=== PATIENT | female | born 1945 | race Caucasian/White ===

== ENCOUNTER 2021-04-25 06:26 | Day surgery (SDC) | payer MEDICARE ==
[2021-04-21 13:38] LABS: BASOPHILS % (AUTO) 0.7 % (0-1); EOSINOPHILS # (AUTO) 0.2 X10'3 (0-0.9); EOSINOPHILS % (AUTO) 2.7 % (0-6); LYMPHOCYTES # (AUTO) 1.5 X10'3 (1.1-4.8); LYMPHOCYTES % (AUTO) 24.2 % (21-51); MEAN CORPUSCULAR HEMOGLOBIN 29.9 PG (27.0-31.0); MEAN CORPUSCULAR HGB CONC 33.9 g/dL (33.0-36.5); MEAN CORPUSCULAR VOLUME 88.1 FL (78-98); MEAN PLATELET VOLUME 7.7 FL (7.4-10.4); MONOCYTES # (AUTO) 0.5 X10'3 (0-0.9); MONOCYTES % (AUTO) 8.2 % (2-12); NEUTROPHILS % (AUTO) 64.2 % (42-75); PRE OP HEMATOCRIT 38.1 % (35.0-45.0); PRE OP HEMOGLOBIN 12.9 g/dL (12.0-16.0); PRE OP PLATELET COUNT 298 X10'3 (140-440); RED BLOOD COUNT 4.32 X10'6 (4.20-5.60); RED CELL DISTRIBUTION WIDTH 14.3 % (11.5-14.5)
[2021-04-21 13:55] LABS: ALBUMIN 3.8 G/DL (3.4-5.0); ALBUMIN/GLOBULIN RATIO 1.1 (1.1-1.5); ALKALINE PHOSPHATASE 100 IU/L (46-116); BLOOD UREA NITROGEN 18 MG/DL (7-18); BUN/CREATININE RATIO 20.2 (6.6-38.0); CHLORIDE 106 MMOL/L (99-107); CREATININE 0.89 MG/DL (0.40-0.90); PRE OP ALT 24 U/L (30-65); PRE OP ANION GAP 8 (8-16); PRE OP AST 16 U/L (10-37); PRE OP BILIRUB, TOTAL 0.6 MG/DL (0.0-1.0); PRE OP GLUCOSE 116 MG/DL (70-104); PRE OP SODIUM 145 MMOL/L (135-145); TOTAL CARBON DIOXIDE 31.2 MMOL/L (24-32); TOTAL PROTEIN 7.4 G/DL (6.4-8.2); eGFR 61 ML/MIN
[2021-04-21 13:57] LABS: PRE OP POTASSIUM 3.3 MMOL/L (3.4-5.1)
[~2021-04-25] VITALS: Ht 172.7 cm; Wt 110.3 kg
[~2021-04-25 06:26] MED LIST: AMLO2.5T2 PO; BETA1TAB20 PO; HYDR12.522 PO; LOSA100T13 PO; albuterol 2.5 MG/3 ML nebule NEB PRN; ceFAZolin 2gm in dextrose, iso 50 ML IV ONE; famotidine 20mg tablet PO ONE; ringers solution, lacted 1,000 ML IV SCH
[2021-04-25] MEDS ORDERED: BUPIVAcaine/PF 2.5 mg/ml (0.25%) 30ml vial ONE (06:31)
[2021-04-25 06:50] VITALS: BP 149/69
[2021-04-25] MEDS ORDERED: ondansetron/PF 4mg/2ml inj IV PRN (07:35)
[2021-04-25] MEDS ORDERED: meperidine/PF 25mg/ml syringe IV PRN ×3 (07:35)
[2021-04-25] MEDS ORDERED: ringers solution, lacted 1,000 ML IV SCH (07:35)
[2021-04-25] MEDS ORDERED: proCHLORperazine 10 MG/2 ml inj IV PRN (07:35)
[2021-04-25] MEDS ORDERED: morphine 2 MG/ML inj. syringe IV PRN (07:35)
[2021-04-25] MEDS ORDERED: morphine 4 MG/ML inj SYRINge IV PRN (07:35)
[2021-04-25] MEDS ORDERED: fentaNYL/PF 50MCG/1 ML 2ML syringe ONE (09:12)
[2021-04-25] MEDS ORDERED: midazolam 1 mg/ML 2ml injection ONE (09:12)
[2021-04-25] MEDS ORDERED: triamcinolone acetonide 40mg/ml inj ONE (09:19)
[2021-04-25] MEDS ORDERED: LIDOcaine 1% 30ml preserv. free vial ONE (09:19)
[2021-04-25] MEDS ORDERED: propofol inj 20 ML IV ONE (09:32)
[2021-04-25 09:40] VITALS: BP 126/70
--- NOTE | 2021-04-25 09:40 | NUR ---
Received from OR via , accompanied by Anesthesiologist and report given by Anesthesiolgist. PATIENT WAKING UP, DENIES PAIN, V/S WNL, CSM INTACT, DRESSING TO RIGHT WRIST CDI.
[2021-04-25 09:50] VITALS: BP 125/76
[2021-04-25 10:00] VITALS: BP 122/76
[2021-04-25 10:10] VITALS: BP 124/76
--- NOTE | 2021-04-25 10:10 | NUR ---
PATIENT A&OX4,, DENIES PAIN, V/S WNL, CSM INTACT, DRESSING TO RIGHT WRIST CDI. PIV D/C, I HAVE REVIEWED D/C INSTRUCTIONS WITH PATIENT AND SHE HAS VERBALIZED UNDERSTANDING. PATIENT D/C [facility] WITH ALL BELONGINGS AND FRIEND GAVE TRANSPORT
== END 2021-04-25 10:10 | disposition home or self-care (01) ==
LOC: PAS 06:26
PROVIDERS: ATTEND Orthopaedic Surgery Hand Surgery
DX: G56.01 Carpal tunnel syndrome, right upper limb (principal); M65.4 Radial styloid tenosynovitis [de Quervain]; J44.9 Chronic obstructive pulmonary disease, unspecified; G47.30 Sleep apnea, unspecified; I10 Essential (primary) hypertension; E66.9 Obesity, unspecified; Z68.37 Body mass index [BMI] 37.0-37.9, adult; Z20.822 Contact with and (suspected) exposure to COVID-19; Z79.899 Other long term (current) drug therapy; Z98.890 Other specified postprocedural states; Z90.710 Acquired absence of both cervix and uterus; Z96.653 Presence of artificial knee joint, bilateral; Z98.41 Cataract extraction status, right eye; Z98.42 Cataract extraction status, left eye; Z82.49 Family history of ischemic heart disease and other diseases of the circulatory system
CPT/HCPCS: 20605; 25000; 36415; 64721; 71046; 80053; 82948; 85025; 93005; J2001; J2250; J2704; J3010; J3301; J3490; U0003; U0005; Z7506; Z7512; A4215; J7120